=== PATIENT | female | born 1990 | race Two or more races ===

== ENCOUNTER → 2024-02-06 | Outpatient (CLI) | payer SELFPAY ==
--- NOTE | 2024-02-06 10:10 | XR_ITS ---
Examination:Left hip AP, lateral, AP pelvis 3 views Technique: Hip AP lateral, AP pelvis, 3 views Exam date and time:February 06, 2024 1130 hours INDICATIONS: Left hip pain beginning 6 months ago. FINDINGS: Moderate narrowing left hip joint Mild to moderate narrowing right hip joint No hip fracture or hip dislocation Bones of the pelvis intact IMPRESSION: Moderate narrowing left hip joint No hip fracture or hip dislocation
== END | disposition home or self-care (01) ==
LOC: COPL 02-07 16:26 → CDIM 02-28 11:15
PROVIDERS: Referring Provider Nurse Practitioner Family; Visit Provider Nurse Practitioner Family
DX: M25.852 Other specified joint disorders, left hip (principal)
CPT/HCPCS: 73502

== ENCOUNTER 2024-09-09 19:55 | Emergency (ER) | payer MEDICAID, SELFPAY ==
[2024-09-09 20:49] VITALS: BP 119/70; PULSE 61; RESP 18; TEMP 36.7; O2SAT 97
--- NOTE | 2024-09-09 21:09 | XR_ITS ---
Examination: CT abdomen with intravenous contrast CT pelvis with intravenous contrast 2-D coronal reconstructions 2-D sagittal reconstructions Date and time of exam:September 10, 2024, 0042 hours. Comparison April 16, 2023 INDICATIONS: Left lower abdominal pain beginning 3 days ago, surgery 10 months ago with lump at the surgical site. CTDI: vol (mGy) 2.31 DLP: (mGycm) 1257 Technique: Multiple axial sections of the abdomen and pelvis have been obtained. 64 slice high-resolution scanner used. 3 mm axial sections have been obtained, post intravenous injection 60 cc Isovue 370 2-D sagittal, coronal reconstructions obtained. Low dose protocols were performed. One or more of the following dose reduction techniques were used; automated exposure control, adjustment of the mA and/or KV according to patient size, use of iterative reconstruction technique. Findings: No focal liver or splenic lesion Gastric sutures Small retrocardiac gastric hernia Absent gallbladder No biliary duct dilatation No pancreatic mass Aorta normal size No renal or ureteral calculi No pericecal inflammatory change Skin thickening of the lower abdomen wall anteriorly No diverticulitis Anteverted uterus Mild free fluid in the pelvis Urinary bladder intact Osseous structures are intact 15 mm right ovarian cyst. Impression : 15 mm right ovarian cyst with mild free fluid in the pelvis, consider pelvic sonography follow-up
--- NOTE | 2024-09-09 21:15 | EDNOTE_ITS ---
ED Abdominal Pain RME/HPI General Chief Complaint: Abdominal Pain Stated complaint: LEFT LOWER ABD PAIN Time seen by provider: 09/09/24 21:09 Arrival date/time: 09/09/24 19:55 33F with history of LLQ panniculitis s/p resection presents to ED with 3 days of LLQ pain and N/V. Patient denies vaginal bleeding, diarrhea, and dysuria/hematuria. Limitations: no limitations Related Data Home Medications ?Medication ?Instructions ?Recorded ?Confirmed multivitamin 1 tab PO DAILY 09/28/2109/02 Previous Rx's ?Medication ?Instructions ?Recorded levofloxacin 250 mg tablet 250 mg PO QDAY #3 tabs 09/02 11/23 ondansetron HCl 4 mg tablet 4 mg PO Q8H PRN nausea and 09/29/21 vomiting #20 tabs ondansetron 4 mg disintegrating 4 mg PO Q8H PRN nausea and 10/24/21 tablet vomiting #30 tabs ibuprofen 800 mg tablet 800 mg PO TID PRN pain #30 t abs 01/09/22 ibuprofen 800 mg tablet 800 mg PO TID PRN pain #30 t abs 04/03/22 tramadol 37.5 mg-acetaminophen 325 1 tab PO TID PRN pa in #20 tabs 07/06/22 mg tablet ibuprofen 800 mg tablet 800 mg PO TID PRN pain #30 t abs 04/16/23 naproxen 500 mg tablet 500 mg PO BID PRN pain #20 t abs 09/10/24 Allergies Allergy/AdvReac Type Severity Reaction Status Date / Time nitrofurantoin Allergy Severe Rash Verified 09/09/24 19:56 Review of Systems Review of Systems Systems Reviewed: All systems reviewed, normal except as documented Constitutional Constitutional: Reports system reviewed and no additional complaints, except as documented, Denies fever(s) and Denies headache(s) ENT Ears, Nose, Mouth, and Throat: Denies disequilibrium and Denies headache(s) Cardiovascular Cardiovascular: Reports system reviewed and no additional complaints, except as documented, Denies chest pain and Denies dyspnea Respiratory Respiratory: Reports system reviewed and no additional complaints, except as documented, Denies cough and Denies dyspnea Gastrointestinal Gastrointestinal: Reports system reviewed and no additional complaints, except as documented, Reports as per HPI, Reports abdominal pain, Reports nausea and Reports vomiting Neurologic Neurologic: Reports system reviewed and no additional complaints, except as documented, Denies confusion, Denies disequilibrium and Denies headache(s) Psychiatric Psychiatric: Denies confusion Past Medical History Past Medical History CARDIAC: Negative Cardiac Disorders or Congestive Heart Failure RESPIRATORY: Negative Chronic Obstructive Pulmonary Disease (COPD) or Asthma GASTROINTESTINAL: Positive Gall Bladder Disease GENITOURINARY: Negative Renal Disease ENDOCRINE: Negative Diabetes Mellitus Type 1 or Diabetes Mellitus Type 2 HEMATOLOGIC: Negative Sickle Cell Disease Surgical History SURGICAL: Positive Abdominal Surgery and Section Social History SMOKING STATUS: Never smoker SUBSTANCE USE: does not use ED Exam General Limitations: Present no limitations General appearance: Present alert and in no apparent distress Head Head exam: Present atraumatic Eye Eye exam: Present normal appearance, PERRL and EOMI ENT ENT exam: Present normal exam, normal oropharynx and mucous membranes moist Neck Neck exam: Present normal inspection, full ROM and trachea midline Chest Chest inspection: Present normal inspection and symmetric chest wall rise Respiratory Respiratory exam: Present normal lung sounds bilaterally Cardiovascular Cardiovascular exam: Present regular rate, normal rhythm and normal heart sounds Abdominal Exam Abdominal exam: Present soft and normal bowel sounds Abdominal tenderness: Present LLQ Extremities Exam Extremities exam: Present normal inspection and full ROM Back Exam Back exam: Present normal inspection and full ROM Neurological Exam Neurological exam: Present alert, oriented X3 and CN II-XII intact Psychiatric Psychiatric exam: Present normal affect and normal mood Skin Skin exam: Present warm, dry, intact and normal color Course Quality Measures none Orders Category Date Time Status CT Screening NOW Care 09/09/24 21:10 Completed Insert IV NOW Care 09/09/24 21:[address] abdomen pelvis w con Stat Exams 09/09/24 21:09 Taken CBC Stat Lab 09/09/24 21:27 Completed CMP [Comprehensive Metabolic Panel] Stat Lab 09/09/24 21:27 Completed HCG Qualitative,Urine Stat Lab 09/09/24 21:12 Completed Lipase Stat Lab 09/09/24 21:27 Completed Urinalysis, C/S if Indicated Stat Lab 09/09/24 21:12 Completed Ketorolac Inj [Toradol Inj] Med 09/10/24 02:04 Discontinued 30 mg IVP X1 ONE Vital Signs Vital signs: Vital Signs Temperature 98.0 F 09/09/24 20:49 Pulse Rate 61 09/09/24 20:49 Respiratory Rate 18 09/09/24 20:49 Blood Pressure 119/70 09/09/24 20:49 Pulse Oximetry (%) 97 09/09/24 20:49 Oxygen Delivery Method Room Air 09/09/24 20:49 O2 at 97% on RA and WNLs Abdominal Pain MDM MDM Narrative MDM Narrative:: 33F with history of LLQ panniculitis s/p resection presents to ED with 3 days of LLQ pain and N/V. Patient denies vaginal bleeding, diarrhea, and dysuria/hematuria. Physical exam reveals LLQ tenderness. No skin redness/swelling. Patient is afebrile, calm, and alert. Labs unremarkable including no leukocytosis. CT reveals possible panniculitis in bilateral ab wall. Meds and in house counsel given. Patient data External records reviewed:: [facility] previous records Clinical information provided by:: patient Social determinants that could affect healthcare access:: none Patient has the following chronic illnesses:: panniculitis How is presenting disease/condition affected by chronic disease/condition?: exacerbated by Evaluation data The following diagnostics were reviewed and interpreted by me:: lab results and radiology exam(s) Lab and/or radiology exams considered but not ordered:: ordered Interpretation Summary: above Medications / Prescriptions Medications or Prescriptions considered but not ordered:: ordered Medication administrations:: Medication Administration History Discontinued Medications Ketorolac Tromethamine (Ketorolac Inj 30 Mg/Ml Vial) 30 mg IVP X1 ONE Stop: 09/10/24 02:05 Last Admin: 09/10/24 02:18 Dose: 30 mg Documented By: VIOLET zuñiga Consultations Consultation(s) initiated? (list below): No Diagnosis Differential diagnosis abdominal pain: abdominal pain, acute appendicitis, calculus of kidney, constipation, diverticulitis, endometriosis, gastroenteritis, pancreatitis, small bowel obstruction and other (panniculitis) Most likely diagnosis given after review of the tests above:: panniculitis Admission Indicated Admission indicated?: not indicated Admission Request Was there a request for admission?: No Disposition Plan Disposition Plan: Discharge Discharge Attestation Discharge Attestation: The patient and all family members were given an opportunity to ask questions and understood the discharge instructions. Discharge instructions specifically effects, indications for sooner follow up or return to the emergency department, and the expected course of current diagnosis. Patient condition: Stable Discharge Plan Plan Patient Disposition: HOME (Self Care) Discharge Disposition comment: Stable Prescriptions/Referrals Prescriptions/Med Rec: New naproxen 500 mg tablet 500 mg PO BID PRN (Reason: pain) Qty: 20 0RF No Action multivitamin Tablet,Chewable 1 tab PO DAILY ondansetron HCl 4 mg tablet 4 mg PO Q8H PRN (Reason: nausea and vomiting) Qty: 20 0RF levofloxacin 250 mg tablet 250 mg PO QDAY Qty: 3 0RF ondansetron 4 mg tablet,disintegrating 4 mg PO Q8H PRN (Reason: nausea and vomiting) Qty: 30 0RF ibuprofen 800 mg tablet 800 mg PO TID PRN (Reason: pain) Qty: 30 0RF ibuprofen 800 mg tablet 800 mg PO TID PRN (Reason: pain) Qty: 30 0RF ibuprofen 800 mg tablet 800 mg PO TID PRN (Reason: pain) Qty: 30 0RF tramadol-acetaminophen 37.5-325 mg tablet 1 tab PO TID PRN (Reason: pain) Qty: 20 0RF Referrals: Antoinette Chau, RYAN-C [Primary Care Provider] - In 1 week Problem List Clinical Impression: Panniculitis Patient/Caregiver Discharge Instructions Education Materials: Abdominal Pain Additional Instructions: Please follow-up with PCP within 24-48 hours and return immediately if symptoms worsen. Ibuprofen/Tylenol can be used simultaneously for greater fever/pain control. Follow-up with original surgeon for possible panniculitis recurrence. Print Language: Sinhala Stand Alone Forms: Patient Portal Info Letter DALE/RYAN Supervising Physician DALE/RYAN Supervising Physician: Dr. Estrada
[2024-09-09 21:28] LABS: Collection Type, Urine Catheter
[2024-09-09 21:43] LABS: Basophils # (Auto) 0.1 Thou/mm3 (0.0-0.2); Basophils % (Auto) 1 % (0-2.5); Eosinophils # (Auto) 0.0 Thou/mm3 (0.0-0.5); Eosinophils % (Auto) 0 % (0-10); Hematocrit 37.0 % (36.0-46.0); Hemoglobin 13.1 g/dL (12.0-16.0); Immature Granulocytes Auto 0.04 Thou/mm3 (0.00-0.00); Lymphocytes # (Auto) 1.5 Thou/mm3 (1.0-4.8); Lymphocytes % (Auto) 14 % (10-50); Mean Corpuscular HGB Conc 35.4 g/dl (31.0-37.0); Mean Corpuscular Hemoglobin 31.0 pg (25.0-35.0); Mean Corpuscular Volume 88 fL (80-100); Monocytes # (Auto) 0.7 Thou/mm3 (0.0-0.8); Monocytes % (Auto) 7 % (0-12); Neutrophils # (Auto) 8.2 Thou/mm3 (1.8-7.7); Neutrophils % (Auto) 78 % (37-80); Nucleated Red Blood Cell # 0.00 Thou/mm3 (0.00-0.00); Nucleated Red Blood Cell % 0 /100 WBC (0); Platelet Count 190 Thou/mm3 (140-440); RDW Standard Deviation 41.6 fL (36.4-46.3); Red Blood Count 4.23 Miln/mm3 (4.00-5.20); White Blood Count 10.5 Thou/mm3 (3.6-11.0)
[2024-09-09 22:02] LABS: Alanine Aminotransferase 19 U/L (10-49); Albumin, Serum 4.4 gm/dL (3.5-5.0); Albumin/Globulin Ratio 1.7 (1.2-2.2); Alkaline Phosphatase 74 U/L (46-116); Anion Gap 8 (7-16); Aspartate Amino Transferase 19 U/L (0-34); BUN/Creatinine Ratio 18 Ratio (12-20); Bilirubin,Total 0.3 mg/dL (0.3-1.2); Blood Urea Nitrogen 14 mg/dL (9-23); Calcium 9.6 mg/dL (8.3-10.6); Calcium (Corrected) 9.6 mg/dL (8.5-10.1); Carbon Dioxide 25.7 mMol/L (20.0-31.0); Chloride 106 mMol/L (98-107); Creatinine (Component) 0.8 mg/dL (0.6-1.3); Estimated Creatinine Clearance 129.2 mL/min (>60); Globulin 2.6 gm/dL (2.3-3.5); Glucose 99 mg/dL (74-106); Lipase 40 U/L (12-53); Osmolality,Calculated 279 (275-295); Potassium 4.5 mMol/L (3.4-5.1); Sodium 140 mMol/L (136-145); Total Protein 7.0 gm/dL (5.7-8.2); eGFR > 60 See Note
[2024-09-09 22:12] LABS: Bilirubin,Urine Negative (Negative); Blood,Urine Trace (Negative); Clarity,Urine Clear (Clear/Hazy); Color,Urine Lt-Yellow (Lt Yel-Yel); Culture Indicated,Urine Not Indicated; Glucose, Urine Negative (Negative); Ketones,Urine Negative (Negative); Leukocyte Esterase,Urine Positive (Negative); Nitrite,Urine Negative (Negative); PH,Urine 6.0 (5.0-7.0); Protein,Urine Negative (Neg - Trace); RBC,Urine 3 /hpf (0-3); Specific Gravity,Urine 1.032 (1.001-1.035); Squamous Epithelial Cell,Urine < 1 /hpf (0-5); Urobilinogen,Urine Negative mg/dL (0.0-1.0); WBC,Urine 4 /hpf (0-5)
[2024-09-09 22:13] LABS: HCG Qualitative,Urine Negative
--- NOTE | 2024-09-10 01:58 | PRELIM_ITS ---
CT scan of the abdomen and pelvis with intravenous contrast (axial sections with sagittal and coronal reformats) September 10, 2024 0042 hours Clinical History: Left lower quadrant pain, nausea and vomiting Reference is made to the prior report dated September. Findings: Right basilar streaky atelectasis is seen. The gallbladder is surgically absent. The liver, pancreas, spleen, kidneys and adrenals are unremarkable. Gastric sleeve surgery changes are noted. Moderate amount of fecal material is present in the ileum and colon. No evidence of bowel obstruction. The appendix is within normal limits. The urinary bladder is unremarkable. There is a 1.5 cm irregular peripherally enhancing cystic structure in the right ovary, suggestive of an involuting follicle. There is no free air. There is trace fluid in the pelvis, likely physiologic. There are a few slightly prominent mesenteric nodes. Nonspecific fat stranding is noted in lower anterior abdominal wall bilaterally. Early degenerative changes are identified in the spine. Impression: No evidence of bowel obstruction, free air or abscess. Constipation. Small involuting follicle in the right ovary. Report Electronically Signed By: Toño Scott 09/10/2024 1:58:24 AM [EST]
[2024-09-10] MEDS: KETOROLAC INJ 30 MG/ML VIAL IVP (02:18)
== END 2024-09-10 02:24 | disposition home or self-care (01) ==
PROVIDERS: Physician Assistant; Emergency Provider Emergency Medicine; PCP Nurse Practitioner Family
DX: M79.3 Panniculitis, unspecified (principal)
CPT/HCPCS: 36415; 74177; 80053; 81001; 81025; 83690; 85025; 96361; 96365; 96366; 96374; 96375; 96376; 99283; A4649; J1885; Q9967

== ENCOUNTER 2024-09-24 10:13 | Emergency (ER) | payer MEDICAID, SELFPAY ==
[2024-09-24 10:36] VITALS: BP 135/92; PULSE 64; RESP 18; TEMP 37.1; O2SAT 97; BMI 48.8
--- NOTE | 2024-09-24 10:39 | XR_ITS ---
Examination: Abdomen sonogram, Limited Date and time of exam: September 24, 2024 1205 hours INDICATIONS: Right upper abdominal pain beginning 3 days ago, severe today, history cholecystectomy Technique: Real-time carrillo scale transabdominal sonographic images of the upper abdomen obtained. Findings: Absent gallbladder Normal common bile duct 0.4 cm Pancreatic head 2.0 cm Liver 12.8 cm fatty infiltration no focal liver lesions Normal hepatopedal portal venous flow Patent IVC IMPRESSION: Normal common bile duct Liver normal size fatty infiltration
--- NOTE | 2024-09-24 10:40 | PD.EDRME ---
Rapid Medical Screening Exam RME Arrival date/time: 09/24/24 10:13 33-year-old female presents the emergency department today for complaints of generalized abdominal pain. Chief Complaint: Abdominal Pain Time Seen by Provider: 09/24/24 10:38 Vital signs: Vital Signs Temperature 98.8 F 09/24/24 10:36 Pulse Rate 64 09/24/24 10:36 Respiratory Rate 18 09/24/24 10:36 Blood Pressure 135/92 H 09/24/24 10:36 Pulse Oximetry (%) 97 09/24/24 10:36 Oxygen Delivery Method Room Air 09/24/24 10:36
[2024-09-24 10:53] LABS: Basophils # (Auto) 0.0 Thou/mm3 (0.0-0.2); Basophils % (Auto) 1 % (0-2.5); Eosinophils # (Auto) 0.1 Thou/mm3 (0.0-0.5); Eosinophils % (Auto) 1 % (0-10); Hematocrit 39.5 % (36.0-46.0); Hemoglobin 14.0 g/dL (12.0-16.0); Immature Granulocytes Auto 0.01 Thou/mm3 (0.00-0.00); Lymphocytes # (Auto) 1.3 Thou/mm3 (1.0-4.8); Lymphocytes % (Auto) 21 % (10-50); Mean Corpuscular HGB Conc 35.4 g/dl (31.0-37.0); Mean Corpuscular Hemoglobin 31.4 pg (25.0-35.0); Mean Corpuscular Volume 89 fL (80-100); Monocytes # (Auto) 0.5 Thou/mm3 (0.0-0.8); Monocytes % (Auto) 8 % (0-12); Neutrophils # (Auto) 4.1 Thou/mm3 (1.8-7.7); Neutrophils % (Auto) 69 % (37-80); Nucleated Red Blood Cell # 0.00 Thou/mm3 (0.00-0.00); Nucleated Red Blood Cell % 0 /100 WBC (0); Platelet Count 163 Thou/mm3 (140-440); RDW Standard Deviation 42.2 fL (36.4-46.3); Red Blood Count 4.46 Miln/mm3 (4.00-5.20); White Blood Count 5.9 Thou/mm3 (3.6-11.0)
[2024-09-24 11:12] LABS: Alanine Aminotransferase 18 U/L (10-49); Albumin, Serum 3.9 gm/dL (3.5-5.0); Albumin/Globulin Ratio 1.4 (1.2-2.2); Alkaline Phosphatase 60 U/L (46-116); Anion Gap 7 (7-16); Aspartate Amino Transferase 17 U/L (0-34); BUN/Creatinine Ratio 19 Ratio (12-20); Bilirubin,Total 0.4 mg/dL (0.3-1.2); Blood Urea Nitrogen 13 mg/dL (9-23); Calcium 8.7 mg/dL (8.3-10.6); Calcium (Corrected) 8.8 mg/dL (8.5-10.1); Carbon Dioxide 27.5 mMol/L (20.0-31.0); Chloride 107 mMol/L (98-107); Creatinine (Component) 0.7 mg/dL (0.6-1.3); Estimated Creatinine Clearance 145.6 mL/min (>60); Globulin 2.7 gm/dL (2.3-3.5); Glucose 98 mg/dL (74-106); Lipase 39 U/L (12-53); Osmolality,Calculated 281 (275-295); Potassium 4.2 mMol/L (3.4-5.1); Sodium 141 mMol/L (136-145); Total Protein 6.6 gm/dL (5.7-8.2); eGFR > 60 See Note
[2024-09-24 11:55] LABS: Collection Type, Urine Clean Catch
--- NOTE | 2024-09-24 12:00 | EDNOTE_ITS ---
ED Abdominal Pain RME/HPI General Chief Complaint: Abdominal Pain Stated complaint: Right upper abdominal pain, vomiting Time seen by provider: 09/24/24 10:38 Arrival date/time: 09/24/24 10:13 RME / HPI RME / HPI narrative: 33-year-old female patient with significant history of gallstone in the past status post laparoscopic cholecystectomy, came in for evaluation regarding right upper quadrant pain. Patient had on and off right upper quadrant pain, getting worse this morning, described as crampy, severity moderate radiating to the back. Patient was seen here last week for the same complaints CT scan of the abdomen and pelvis and workup all came back normal. Patient denies any vomiting denies any fever denies any other complaints no medications taken prior to ER visit. Related Data Home Medications ?Medication ?Instructions ?Recorded ?Confirmed multivitamin 1 tab PO DAILY 09/28/2109/02 Previous Rx's ?Medication ?Instructions ?Recorded levofloxacin 250 mg tablet 250 mg PO QDAY #3 tabs 09/02 11/23 ondansetron HCl 4 mg tablet 4 mg PO Q8H PRN nausea and 09/29/21 vomiting #20 tabs ondansetron 4 mg disintegrating 4 mg PO Q8H PRN nausea and 10/24/21 tablet vomiting #30 tabs ibuprofen 800 mg tablet 800 mg PO TID PRN pain #30 t abs 01/09/22 ibuprofen 800 mg tablet 800 mg PO TID PRN pain #30 t abs 04/03/22 tramadol 37.5 mg-acetaminophen 325 1 tab PO TID PRN pa in #20 tabs 07/06/22 mg tablet ibuprofen 800 mg tablet 800 mg PO TID PRN pain #30 t abs 04/16/23 naproxen 500 mg tablet 500 mg PO BID PRN pain #20 t abs 09/10/24 dicyclomine 20 mg tablet 20 mg PO QID PRN abdominal p ain 09/24/24 #30 tabs pantoprazole 40 mg tablet,delayed 40 mg PO QDAY #20 ta bs 09/24/24 release (Protonix) Allergies Allergy/AdvReac Type Severity Reaction Status Date / Time nitrofurantoin Allergy Severe Rash Verified 09/24/24 10:17 Review of Systems Review of Systems Narrative Review of Systems: Review of system reviewed and within normal limits except mentioned in HPI ED Exam Narrative Physical exam: VITAL SIGNS: Reviewed. GENERAL APPEARANCE: Alert and interactive, follows commands, no acute distress, HEAD AND FACE: Non-traumatic. ENT: PERRL, pink conjunctivitis, eyelid no trauma, Mucous membrane moist. NECK: Supple, nontender, no nuchal rigidity. CHEST: No tenderness, no crepitus, no paradoxical movement, no retractions. LUNGS: Clear, well ventilated, symmetric, no rales, no wheezing, no ronchi, no stridor, good breath sounds bilaterally. HEART: Regular rate, regular rhythm, no murmur, no gallops. ABDOMEN: Soft, positive bowel sounds, nondistended, no guarding, right upper quadrant tenderness, no rebound, no masses, RECTAL: Deferred. GENITAL: Deferred. NEUROLOGICAL: Gross motor function intact sensory function intact, Appropriate for age. MUSCULOSKELETAL: low back nontender, full range of motion. EXTREMITIES: Nontender, full range of motion. SKIN: Color pink, dry, no rash, no lacerations, no abrasions, no contusions. LYMPHATICS: Deferred. Course Quality Measures none Orders Category Date Time Status US gall bladder Stat Exams 09/24/24 10:39 Completed CBC Stat Lab 09/24/24 10:40 Completed Comprehensive Metabolic Panel Stat Lab 09/24/24 10:40 Completed HCG Qualitative,Urine Stat Lab 09/24/24 11:41 Completed Lipase Stat Lab 09/24/24 10:40 Completed UA, C/S IF [Urinalysis, C/S if Indicated] Stat Lab 09/24/24 11:41 Completed Dicyclomine [Bentyl] Med 09/24/24 12:00 Discontinued 20 mg PO X1 ONE Ketorolac Inj [Toradol Inj] Med 09/24/24 11:56 Discontinued 30 mg IM X1 ONE mg Hyd/Al Hyd/Da Susp [Maalox Susp] Med 09/24/24 11:56 Discontinued 30 ml PO X1 ONE Vital Signs Vital signs: Vital Signs Temperature 98.8 F 09/24/24 10:36 Pulse Rate 64 09/24/24 10:36 Respiratory Rate 18 09/24/24 10:36 Blood Pressure 135/92 H 09/24/24 10:36 Pulse Oximetry (%) 97 09/24/24 10:36 Oxygen Delivery Method Room Air 09/24/24 10:36 Abdominal Pain MDM MDM Narrative MDM Narrative:: 33-year-old female patient with significant history of gallstone in the past status post laparoscopic cholecystectomy, came in for evaluation regarding right upper quadrant pain. Patient had on and off right upper quadrant pain, getting worse this morning, described as crampy, severity moderate radiating to the back. Patient was seen here last week for the same complaints CT scan of the abdomen and pelvis and workup all came back normal. Patient denies any vomiting denies any fever denies any other complaints no medications taken prior to ER visit. Patient's workup today all came back normal normal lipase normal CMP normal urinalysis normal CBC and ultrasound of the abdomen showed fatty liver otherwise unremarkable status postcholecystectomy. Patient was given Maalox, Bentyl, and Toradol with complete response of symptoms Was advised to follow-up with GI specialist for fatty liver. Patient agrees with the plan Patient data External records reviewed:: None Clinical information provided by:: patient Social determinants that could affect healthcare access:: none Patient has the following chronic illnesses:: None How is presenting disease/condition affected by chronic disease/condition?: no chronic disease Evaluation data The following diagnostics were reviewed and interpreted by me:: lab results Lab and/or radiology exams considered but not ordered:: None Interpretation Summary: She recently gave Medications / Prescriptions Medications or Prescriptions considered but not ordered:: None Medication administrations:: Medication Administration History Discontinued Medications Al Hydrox/Mg Hydrox/Simethicone (Mg Hyd/Al Hyd/Da (Maalox Reg) Susp 30 Ml Udc) 30 ml PO X1 ONE Stop: 09/24/24 11:57 Last Admin: 09/24/24 12:51 Dose: 30 ml Documented By: TRU Dicyclomine HCl (Dicyclomine 10 Mg Capsule) 20 mg PO X1 ONE Stop: 09/24/24 12:01 Last Admin: 09/24/24 12:51 Dose: 20 mg Documented By: TRU Ketorolac Tromethamine (Ketorolac Inj 60 Mg/2 Ml Vial) 30 mg IM X1 ONE Stop: 09/24/24 11:57 Last Admin: 09/24/24 12:52 Dose: 30 mg Documented By: TRU Toradol, Bentyl and Maalox Consultations Consultation(s) initiated? (list below): No Diagnosis Differential diagnosis abdominal pain: abdominal pain, gastroenteritis and pancreatitis Most likely diagnosis given after review of the tests above:: Right upper quadrant abdominal pain, fatty liver Admission Indicated Admission indicated?: not indicated Admission Request Was there a request for admission?: No Disposition Plan Disposition Plan: Discharge Discharge Attestation Discharge Attestation: The patient was given an opportunity to ask questions and understood the discharge instructions. Discharge instructions specifically effects, indications for sooner follow up or return to the emergency department, and the expected course of current diagnosis. Patient condition: Stable Discharge Plan Plan Patient Disposition: HOME (Self Care) Discharge Disposition comment: Stable Prescriptions/Referrals Prescriptions/Med Rec: New dicyclomine 20 mg tablet 20 mg PO QID PRN (Reason: abdominal pain) Qty: 30 0RF pantoprazole [Protonix] 40 mg tablet,delayed release (DR/EC) 40 mg PO QDAY Qty: 20 0RF No Action multivitamin Tablet,Chewable 1 tab PO DAILY ondansetron HCl 4 mg tablet 4 mg PO Q8H PRN (Reason: nausea and vomiting) Qty: 20 0RF levofloxacin 250 mg tablet 250 mg PO QDAY Qty: 3 0RF ondansetron 4 mg tablet,disintegrating 4 mg PO Q8H PRN (Reason: nausea and vomiting) Qty: 30 0RF ibuprofen 800 mg tablet 800 mg PO TID PRN (Reason: pain) Qty: 30 0RF ibuprofen 800 mg tablet 800 mg PO TID PRN (Reason: pain) Qty: 30 0RF ibuprofen 800 mg tablet 800 mg PO TID PRN (Reason: pain) Qty: 30 0RF naproxen 500 mg tablet 500 mg PO BID PRN (Reason: pain) Qty: 20 0RF tramadol-acetaminophen 37.5-325 mg tablet 1 tab PO TID PRN (Reason: pain) Qty: 20 0RF Referrals: Antoinette Chau FNP-C [Primary Care Provider] - In 1 week Problem List Clinical Impression: Abdominal pain, Fatty liver Patient/Caregiver Discharge Instructions Discharge Activity: activity as tolerated Education Materials: Abdominal Pain Additional Instructions: Thank you for the opportunity for serving you today. You are stable for discharged . You are advised to: Follow-up with your PCP in 1 to 2 days as per referral to gastroenterology regarding your fatty liver Return to ED for worsening of symptoms Increase oral fluids Take medication as prescribed Print Language: Maldivian Stand Alone Forms: Amy Award Info., Patient Portal Info Letter DALE/AUTOMOTIVE REFINISH TECHNICIAN Supervising Physician DALE/AUTOMOTIVE REFINISH TECHNICIAN Supervising Physician: MD Aaron
[2024-09-24 12:02] LABS: HCG Qualitative,Urine Negative
[2024-09-24 12:04] LABS: Bilirubin,Urine Negative (Negative); Blood,Urine Negative (Negative); Clarity,Urine Clear (Clear/Hazy); Color,Urine Lt-Yellow (Lt Yel-Yel); Culture Indicated,Urine Not Indicated; Glucose, Urine Negative (Negative); Ketones,Urine Negative (Negative); Leukocyte Esterase,Urine Negative (Negative); Nitrite,Urine Negative (Negative); PH,Urine 6.5 (5.0-7.0); Protein,Urine Negative (Neg - Trace); RBC,Urine 3 /hpf (0-3); Specific Gravity,Urine 1.025 (1.001-1.035); Squamous Epithelial Cell,Urine 1 /hpf (0-5); Urobilinogen,Urine Negative mg/dL (0.0-1.0); WBC,Urine 1 /hpf (0-5)
[2024-09-24] MEDS: DICYCLOMINE 10 MG CAPSULE 20 MG PO (12:51)
[2024-09-24] MEDS: MG HYD/AL HYD/SIME (Maalox Reg) SUSP 30 ML UDC PO (12:51)
--- NOTE | 2024-09-24 12:51 | PC.NURSE ---
NA X 1 @ 12:51
[2024-09-24] MEDS: KETOROLAC INJ 60 MG/2 ML VIAL 30 MG IM (12:52)
== END 2024-09-24 13:23 | disposition home or self-care (01) ==
PROVIDERS: Nurse Practitioner Primary Care; Emergency Provider Nurse Practitioner Family; PCP Nurse Practitioner Family
DX: K76.0 Fatty (change of) liver, not elsewhere classified (principal)
CPT/HCPCS: 36415; 76705; 80053; 81001; 81025; 83690; 85025; 96372; 99283; J1885; A9270

== ENCOUNTER 2024-12-07 15:49 | Emergency (ER) | payer MEDICAID, SELFPAY ==
[2024-12-07 15:51] VITALS: BMI 47.2
[2024-12-07 16:06] VITALS: BP 126/82; PULSE 78; RESP 18; TEMP 36.9; O2SAT 99
--- NOTE | 2024-12-07 16:13 | EKG_ITS ---
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
--- NOTE | 2024-12-07 16:13 | XR_ITS ---
Examination: CT brain head without contrast. 2-D sagittal coronal reconstructions Date and time of exam:December 07 thousand 25, 1935 hrs. Indications: Head pain generalized weakness today Comparison: March 17, 2022 CTDI: vol (mGy):54.8 DLP: (mGycm):1140 Technique: Multiple CT axial sections of the brain have been obtained, 5 mm slice thickness. Contrast has not been administered. 2-D sagittal, coronal reconstructions have been obtained Low dose protocols were performed. One or more of the following dose reduction techniques were used; automated exposure control, adjustment of the mA and/or KV according to patient size, use of iterative reconstruction technique. Findings: No significant ventricular enlargement. Intra-axial or extra-axial hemorrhage density is not seen. No mass effect or midline shift Basal cisterns are not remarkable. Fourth ventricle is midline. Cranial vault intact. Impression: Negative for acute hemorrhage, mass effect or midline shift Advise clinical correlation follow-up accordingly
--- NOTE | 2024-12-07 16:14 | PD.EDRME ---
Rapid Medical Screening Exam RME Arrival date/time: 12/07/24 15:49 This is a case of 33-year-old female with no medical history came into the emergency room due to on and off headache and dizziness for 3 days persistence of the symptoms now with loss of mobility of his right hand and numbness this patient decided to start consult here in the emergency room Chief Complaint: General Adult/Misc Complain Time Seen by Provider: 12/07/24 15:55 Vital signs: Vital Signs Temperature 98.5 F 12/07/24 16:06 Pulse Rate 78 12/07/24 16:06 Respiratory Rate 18 12/07/24 16:06 Blood Pressure 126/82 12/07/24 16:06 Pulse Oximetry (%) 99 12/07/24 16:06 Oxygen Delivery Method Room Air 12/07/24 16:06
[2024-12-07 16:37] LABS: Collection Type, Urine Clean Catch
[2024-12-07 16:54] LABS: Basophils # (Auto) 0.0 Thou/mm3 (0.0-0.2); Basophils % (Auto) 0 % (0-2.5); Eosinophils # (Auto) 0.1 Thou/mm3 (0.0-0.5); Eosinophils % (Auto) 2 % (0-10); Hematocrit 36.4 % (36.0-46.0); Hemoglobin 12.7 g/dL (12.0-16.0); Immature Granulocytes Auto 0.01 Thou/mm3 (0.00-0.00); Lymphocytes # (Auto) 2.1 Thou/mm3 (1.0-4.8); Lymphocytes % (Auto) 38 % (10-50); Mean Corpuscular HGB Conc 34.9 g/dl (31.0-37.0); Mean Corpuscular Hemoglobin 31.3 pg (25.0-35.0); Mean Corpuscular Volume 90 fL (80-100); Monocytes # (Auto) 0.4 Thou/mm3 (0.0-0.8); Monocytes % (Auto) 8 % (0-12); Neutrophils # (Auto) 2.9 Thou/mm3 (1.8-7.7); Neutrophils % (Auto) 52 % (37-80); Nucleated Red Blood Cell # 0.00 Thou/mm3 (0.00-0.00); Nucleated Red Blood Cell % 0 /100 WBC (0); Platelet Count 161 Thou/mm3 (140-440); RDW Standard Deviation 42.1 fL (36.4-46.3); Red Blood Count 4.06 Miln/mm3 (4.00-5.20); White Blood Count 5.5 Thou/mm3 (3.6-11.0)
[2024-12-07 17:23] LABS: Alanine Aminotransferase 18 U/L (10-49); Albumin, Serum 4.1 gm/dL (3.5-5.0); Albumin/Globulin Ratio 1.8 (1.2-2.2); Alkaline Phosphatase 50 U/L (46-116); Anion Gap 8 (7-16); Aspartate Amino Transferase 19 U/L (0-34); BUN/Creatinine Ratio 12 Ratio (12-20); Bilirubin,Total 0.4 mg/dL (0.3-1.2); Blood Urea Nitrogen 11 mg/dL (9-23); Calcium 8.7 mg/dL (8.3-10.6); Calcium (Corrected) 8.7 mg/dL (8.5-10.1); Carbon Dioxide 25.4 mMol/L (20.0-31.0); Chloride 109 mMol/L (98-107); Creatinine (Component) 0.9 mg/dL (0.6-1.3); Estimated Creatinine Clearance 111.1 mL/min (>60); Globulin 2.3 gm/dL (2.3-3.5); Glucose 82 mg/dL (74-106); Osmolality,Calculated 281 (275-295); Potassium 4.1 mMol/L (3.4-5.1); Sodium 142 mMol/L (136-145); Total Protein 6.4 gm/dL (5.7-8.2); Troponin I < 0.002 ng/mL (0.0-0.045); eGFR > 60 See Note
[2024-12-07 17:34] LABS: Bilirubin,Urine Negative (Negative); Blood,Urine Negative (Negative); Budding Yeast,Urine Present; Clarity,Urine Turbid (Clear/Hazy); Color,Urine Yellow (Lt Yel-Yel); Glucose, Urine Negative (Negative); Hyphae Yeast Present; Ketones,Urine Negative (Negative); Leukocyte Esterase,Urine Positive (Negative); Nitrite,Urine Negative (Negative); PH,Urine 6.0 (5.0-7.0); Protein,Urine Trace (Neg - Trace); RBC,Urine 13 /hpf (0-3); Specific Gravity,Urine 1.023 (1.001-1.035); Squamous Epithelial Cell,Urine 25 /hpf (0-5); Urobilinogen,Urine Negative mg/dL (0.0-1.0); WBC,Urine 24 /hpf (0-5)
[2024-12-07 17:47] LABS: HCG Qualitative,Urine Negative
--- NOTE | 2024-12-07 20:12 | EDNOTE_ITS ---
ED General RME/HPI General Chief complaint: General Adult/Misc Complain Stated complaint: RIGHT SIDED NUMBNESS, TIRED, HAYES, DIZZY X 3 DAYS Time Seen by Provider: 12/07/24 15:55 Arrival date/time: 12/07/24 15:49 CC: Left arm weakness left facial numbness intermittent dizziness HPI all of them and intermittent episodes 6, in the past 3 days. Currently all symptoms are absent. Patient states also she has also had intermittent nausea and a mild headache no prior history of similar events takes no medicines other than multivitamins denies fever chills chest pain shortness of breath painful urination bloody urination back pain falls trauma or repetitive motion. RME / HPI RME / HPI narrative: 12/07/24 15:49 This is a case of 33-year-old female with no medical history came into the emergency room due to on and off headache and dizziness for 3 days persistence of the symptoms now with loss of mobility of his right hand and numbness this patient decided to start consult here in the emergency room Related Data Home Medications ?Medication ?Instructions ?Recorded ?Confirmed multivitamin 1 tab PO DAILY 09/28/2109/02 Previous Rx's ?Medication ?Instructions ?Recorded levofloxacin 250 mg tablet 250 mg PO QDAY #3 tabs 09/02 11/23 ondansetron HCl 4 mg tablet 4 mg PO Q8H PRN nausea and 09/29/21 vomiting #20 tabs ondansetron 4 mg disintegrating 4 mg PO Q8H PRN nausea and 10/24/21 tablet vomiting #30 tabs ibuprofen 800 mg tablet 800 mg PO TID PRN pain #30 t abs 01/09/22 ibuprofen 800 mg tablet 800 mg PO TID PRN pain #30 t abs 04/03/22 tramadol 37.5 mg-acetaminophen 325 1 tab PO TID PRN pa in #20 tabs 07/06/22 mg tablet ibuprofen 800 mg tablet 800 mg PO TID PRN pain #30 t abs 04/16/23 naproxen 500 mg tablet 500 mg PO BID PRN pain #20 t abs 09/10/24 dicyclomine 20 mg tablet 20 mg PO QID PRN abdominal p ain 09/24/24 #30 tabs pantoprazole 40 mg tablet,delayed 40 mg PO QDAY #20 ta bs 09/24/24 release (Protonix) fluconazole 100 mg tablet 100 mg PO QDAY 10 days #10 t abs 12/07/24 Allergies Allergy/AdvReac Type Severity Reaction Status Date / Time nitrofurantoin Allergy Severe Rash Verified 09/24/24 10:17 Review of Systems Review of Systems Narrative Review of Systems: GEN: No fever, no chills, no weight loss EYES: No discharge, no visual changes, no pain HEENT: No ear pain, no congestion, no sore throat PULM: No shortness of breath, no cough, no congestion CV: No chest pain, no dyspnea on exertion, no palpitations GI: No nausea, no vomiting, no diarrhea, no pain, no constipation : No frequency, no urgency, no dysuria MUSC/SKEL: No joint pain, no back pain SKIN: No rash PSYCH: No hallucinations, no depression HEME/LYMPH: No easy bleeding or bruising tendencies NEURO: + weakness, no headache Past Medical History Past Medical History CARDIAC: Negative Cardiac Disorders or Congestive Heart Failure RESPIRATORY: Negative Chronic Obstructive Pulmonary Disease (COPD) or Asthma GASTROINTESTINAL: Positive Gall Bladder Disease GENITOURINARY: Negative Renal Disease ENDOCRINE: Negative Diabetes Mellitus Type 1 or Diabetes Mellitus Type 2 HEMATOLOGIC: Negative Sickle Cell Disease Surgical History SURGICAL: Positive Abdominal Surgery and Section Social History SMOKING STATUS: Never smoker SUBSTANCE USE: does not use ED Exam Narrative Physical exam: [General: Obese not in any acute distress Head normocephalic HEENT: Eyes pupils are PERRLA EOMs are intact mouth pink moist membranes uvula is midline swallow symmetrical phonation is normal. All of the subsystems of HEENT are within acceptable limits Neck is supple nontender no JVD no edema Chest equal chest rise nontender to palpation Respiratory: Clear to auscultation no wheezes crackles or rubs CV: Rate rhythm is regular no murmurs rubs or clicks Abdomen is grossly distended secondary to body habitus soft nontender no masses positive bowel sounds all 4 quadrants Skin: Intact no petechiae rash induration ulceration or crepitus Extremities: Moving all extremity against resistance cap refill less than 2 seconds neurosensory intact Neuro: Awake alert oriented x3 Glascow coma 15 no focal deficits] Course Course Course Narrative: All laboratory and imaging is negative, the patient is completely absent of all symptoms right now I have a low index suspicion this is any acute finding. As these are been intermittent episodes the patient has a follow-up appoint with her PCP tomorrow comfortable discharging this patient home with a diagnosis of weakness. Quality Measures none Orders Category Date Time Status EKG (ED ONLY) *Do not use* NOW Care 12/07/24 16:[address] head/brain wo con Stat Exams 12/07/24 16:13 Completed EKG (ED Only) Stat Exams 12/07/24 16:13 Draft CBC Stat Lab 12/07/24 16:31 Completed Comprehensive Metabolic Panel Stat Lab 12/07/24 16:31 Completed HCG Qualitative,Urine Stat Lab 12/07/24 16:27 Completed Troponin I Stat Lab 12/07/24 16:31 Completed Urinalysis Stat Lab 12/07/24 16:27 Completed Vital Signs Vital signs: Vital Signs Temperature 98.5 F 12/07/24 16:06 Pulse Rate 78 12/07/24 16:06 Respiratory Rate 18 12/07/24 16:06 Blood Pressure 126/82 12/07/24 16:06 Pulse Oximetry (%) 99 12/07/24 16:06 Oxygen Delivery Method Room Air 12/07/24 16:06 Discharge Plan Plan Patient Disposition: HOME (Self Care) Patient condition on transfer: Stable Prescriptions/Referrals Prescriptions/Med Rec: New fluconazole 100 mg tablet 100 mg PO QDAY 10 Days Qty: 10 0RF No Action multivitamin Tablet,Chewable 1 tab PO DAILY ondansetron HCl 4 mg tablet 4 mg PO Q8H PRN (Reason: nausea and vomiting) Qty: 20 0RF levofloxacin 250 mg tablet 250 mg PO QDAY Qty: 3 0RF ondansetron 4 mg tablet,disintegrating 4 mg PO Q8H PRN (Reason: nausea and vomiting) Qty: 30 0RF ibuprofen 800 mg tablet 800 mg PO TID PRN (Reason: pain) Qty: 30 0RF ibuprofen 800 mg tablet 800 mg PO TID PRN (Reason: pain) Qty: 30 0RF ibuprofen 800 mg tablet 800 mg PO TID PRN (Reason: pain) Qty: 30 0RF naproxen 500 mg tablet 500 mg PO BID PRN (Reason: pain) Qty: 20 0RF dicyclomine 20 mg tablet 20 mg PO QID PRN (Reason: abdominal pain) Qty: 30 0RF pantoprazole [Protonix] 40 mg tablet,delayed release (DR/EC) 40 mg PO QDAY Qty: 20 0RF tramadol-acetaminophen 37.5-325 mg tablet 1 tab PO TID PRN (Reason: pain) Qty: 20 0RF Referrals: Nash Kaur MD [Physician, Family Practice] - In 1 week No Primary/Family,Physician [Primary Care Provider] - In 1 week Problem List Clinical Impression: Weakness, Headache, Candidiasis Patient/Caregiver Discharge Instructions Education Materials: Self-Care for Headaches, ED Weakness (Uncertain Cause) Additional Instructions: Follow-up with your primary care doctor if is worsening of symptoms in spite of medications return to the emergency room immediately for further evaluation. Print Language: Wolof Stand Alone Forms: Sessions Info., Patient Portal Info Letter PA/RYAN Supervising Physician DALE/RYAN Supervising Physician: Savage BUTLER Clinical Information Provided by: patient Medical Records reviewed [facility] Meds/Rx considered, not ordered None Labs/Rad/Tests considered, not ordered None Chronic Illness/Social Conditions which may negatively complicate care or outcome(s)-explain: None or not applicable Explain: Obesity EKG Interpretation EKG #1: EKG Interpretation: EKG performed at 1615 shows a ventricular rate of 77 NC interval 149 QRS of 83 QTc of 365 this is normal sinus rhythm. Labs Labs: interpreted by ca Lab(s) Interpretation(s): CBC shows no acute leukocytosis anemia thrombocytopenia CMP shows no acute electrolyte imbalances other than a chloride of 109. No transaminitis T. bili elevation. Urine is turbid. 24 WBCs squamous epithelia 25 yeast is present bacteria is absent. hCG is negative Imaging Imaging interpretation: interpreted by me Imaging Interpretation(s): CT head is negative Diagnosis Differential Diagnosis ED Complaint MDM: CVA TIA somatizations
== END 2024-12-07 20:21 | disposition home or self-care (01) ==
PROVIDERS: Nurse Practitioner Family; Emergency Provider Emergency Medicine
DX: B37.9 Candidiasis, unspecified (principal); R51.9 Headache, unspecified; R53.1 Weakness; I49.8 Other specified cardiac arrhythmias
CPT/HCPCS: 36415; 70450; 80053; 81001; 81025; 84484; 85025; 93005; 99283